=== PATIENT | female | born 1940 | race Caucasian/White ===

== ENCOUNTER 2017-09-07 20:58 | Emergency (ER) | payer MEDICARE, SELFPAY ==
[2017-09-07 20:59] VITALS: BP 146/64; PULSE 60; RESP 19; TEMP 36.7; O2SAT 99; BMI 26.4
[2017-09-07 21:06] LABS: Bedside Glucose 122 mg/dL (70-110)
--- NOTE | 2017-09-07 21:26 | RAD_ITS ---
STUDY: X-RAY - LUMBAR SPINE REASON FOR EXAM: Female, 77 years old. Pain, injury TECHNIQUE: 3 view(s) of the lumbar spine were obtained. COMPARISON: None FINDINGS: There is osteopenia. There is levoscoliosis. There is mild degenerative spondylolisthesis at L4-L5. There is multilevel degenerative spurring with degenerative disc disease pronounced at L2-L3 and T12-L1. There is no acute fracture. No osseous destruction. Arterial calcification. RAD/Lumbar Spine 2 or 3 Views IMPRESSION: Mild degenerative spondylolisthesis, L4-L5 Levoscoliosis with multilevel degenerative disease pronounced at L1-L2 and T11-T12 Osteopenia Electronically Signed: Bear Robertson MD at 22:08 EDT Tel , Service support ,
--- NOTE | 2017-09-07 21:26 | EKG12_ITS ---
Test Reason : WEAKNESS Blood Pressure : / mmHG Vent. Rate : 054 BPM Atrial Rate : 054 BPM P-R Int : 166 ms QRS Dur : 092 ms QT Int : 424 ms P-R-T Axes : 053 -19 020 degrees QTc Int : 402 ms Sinus bradycardia Otherwise normal ECG Confirmed by LAVELL LING, OLIVIA ([id number]), fan mail editor LENORE WATTS ([id number]) on 09/11/2017 1:11:43 PM Referred By: RADHA Confirmed By:OLIVIA MONTE MD
--- NOTE | 2017-09-07 21:48 | RAD_ITS ---
STUDY: X-RAY - PELVIS AND LEFT HIP REASON FOR EXAM: Female, 77 years old. Injury, pain TECHNIQUE: Radiological exam, hip, unilateral, with pelvis when performed; 2 or 3 views. COMPARISON: None. FINDINGS: There is moderate osteoarthritis bilaterally. There is chondrocalcinosis. There is amorphous calcification at the gluteal insertion on the right. There is osteopenia. There is no acute fracture. No osseous destruction. There is no osteonecrosis. The SI joints are intact. Arterial calcification. RAD/Hip 2-3 Views with Pelvis IMPRESSION: No acute fracture Moderate osteoarthritis of the hips CPPD deposition Electronically Signed: Bear Robertson MD at 22:05 EDT Tel , Service support ,
[2017-09-07 21:51] LABS: Absolute Lymphocyte Count 1.59 X10^3/ul (0.83-4.51); Absolute Neutrophil Count 6.1 X10^3/uL (2.0-7.7); Basophil# 0.01 X10^3/uL; Basophil% 0.1 % (0-1); Eosinophil# 0.06 X10^3/uL; Eosinophils% 0.7 % (0-5); Hematocrit 39.1 % (37-47); Lymphocyte # 1.59 X10^3/ul (4.0); Lymphocyte % 18.3 % (19-41); Mean Corp Hgb Conc 33.2 g/gl (32-36); Mean Corpuscular Volume 93.3 fL (81-99); Mean Platelet Vol. 9.8 fl (6.2-12.0); Monocyte# 0.96 X10^3/uL; Neutrophil # 6.08 X10^3/uL (2.7-7.7); Neutrophil % 69.8 % (47-70); Platelet Count 258 K/mm3 (150-450); RBC Distribution Width SD 44.2 fl (35.1-43.9); Red Blood Count 4.19 M/mm3 (4.2-5.4); White Blood Count 8.7 K/mm3 (4.4-11.0)
[2017-09-07 21:52] LABS: Anion Gap 5 (5-15); BUN 31 mg/dL (7-18); BUN/Creat Ratio 33.5 RATIO (10-20); Chloride 105 mmol/L (98-107); Creatinine, Serum 0.92 mg/dL (0.55-1.02); EST Glomerular Filtration Rate 63 mL/min (>60); Est Glom Filt Rate - Afr Amer 76 mL/min (>60); Estimated Creatinine Clearance 36.78 ml/min; Glucose 106 mg/dL (74-106); POSITIVE COUNT NO; POSITIVE DIFFERENTIAL NO; POSITIVE MORPHOLOGY NO; Potassium 3.7 mmol/L (3.5-5.1); Sodium Level 140 mmol/L (136-145)
[2017-09-07] MEDS: 0.9% Normal Saline 1,000 ML 150 ML IV (22:32)
[2017-09-07 22:55] LABS: Bacteria 0 SEEN /hpf (None Seen); Mucous, Urine 0 SEEN /hpf (<or=2+); Squamous Epithelial Cells - UA 0 SEEN /hpf (5-10)
[2017-09-07 22:58] LABS: Color, Urine Yellow (Yellow); Glucose, Dipstick Normal (Normal); Ketone-Dipstick Negative (Negative); Leukocyte Esterase-Dipstick 100 /ul (Negative); Nitrite-Dipstick Negative (Negative); Occult Blood-Urine 25 /ul (Negative); Protein-Dipstick 15 mg/dl (Negative); Specific Gravity, Urine 1.025 (1.002-1.030); Urine Bilirubin Dipstick Negative (Negative); Urine Clarity Clear (Clear); Urine Urobilinogen Normal (Normal)
[2017-09-07 23:04] LABS: Red Blood Cells-Urine 0-5 SEEN /hpf (0-5); White Blood Cells 0-5 SEEN /hpf (0-5)
--- NOTE | 2017-09-07 23:09 | ED.VISSUMM ---
- ER Visit Summary Date of Service: 09/07/17 Chief Complaint: [Fall] History of Present Illness: The patient is a 77 F [presents the emergency department with complaint of a fall that occurred this evening. Patient states it really was not even much of a fall she just got stuck and wedged between a chest and her bed. Patient used her medic alert button to alert EMS. Patient was noted to be somewhat confused and had some difficult speech so they convinced her to come to the emergency department to be evaluated. On arrival to the emergency department patient is without any injury or complaint and she does have a family member here with her as well as a friend who has power of commercial real estate attorney over patient. Patient is to go to assisted living facility next week. Patient apparently had a fall 3 days ago and had been complaining of some left hip pain. Patient also complains of some discomfort into her low back.] Physical Examination: [HEENT-PERRLA, EOMI. Cranial nerves II through XII grossly intact. TMs clear. Mucous membranes moist. No adenopathy. Cardiovascular-regular rate and rhythm without murmur or ectopy Lungs-clear to auscultation, chest wall stable without crepitus or subcu emphysema Abdomen-normoactive bowel sounds, soft, nontender, no rebound or rigidity, no peritoneal signs. Back exam-patient has some mild diffuse tenderness over the lumbar spine. Extremities-intact ?4, normal range of motion, normal pulses, atraumatic]. Patient has some mild tenderness over the right and left hips on palpation however there is no leg shortening or rotational deformity noted. She is neurovascularly intact. Test Results: [EKG obtained on arrival shows sinus rhythm with a ventricular rate of 54 bpm. CBC with differential was normal. Chemistries unremarkable. Urinalysis was normal. Troponin was less than 0.015. X-rays of the pelvis and left hip obtained showed no fractures. X-rays of the lumbar spine show degenerative changes and levoscoliosis but no fractures.] Emergency Department Course and Treatment: [I had a discussion with patient and her family and friend at this time patient still makes all her medical decisions. She does not want to be admitted to the hospital but would prefer to go home she feels safe going home. Patient understands that I have some concern about her ability to care for herself. Patient does normally walk with a walker. Patient understands she is at risk for further fall and injury. Patient understands she may return to the emergency department at any time.] Treatment Plan: [Patient to follow-up with her primary care physician within next 5-7 days.] Disposition: [Discharged home in stable condition] Impression: [Generalized weakness Back pain status post fall Bilateral hip pain] This note was generated with [employer] dictation software. It may contain incorrect words, spelling, and punctuation that were not noted in review of the chart prior to signing ED Disposition - Plan for ED Patient: Chief Complaint: Fall Referrals: Kevin Francis MD [Primary Care Provider] -
--- NOTE | 2017-09-07 23:13 | ED.DEP ---
ED Disposition - Plan for ED Patient: Chief Complaint: Fall Instructions: ED Mechanical Fall, ED Weakness [facility] Referrals: Kevin Francis MD [Primary Care Provider] - 5-7 Days
[2017-09-07 23:32] VITALS: BP 136/90; PULSE 89; RESP 16; O2SAT 98
== END 2017-09-07 23:41 | disposition home or self-care (01) ==
PROVIDERS: Emergency Provider Emergency Medicine; Family Provider Family Medicine; PCP Family Medicine
DX: R53.1 Weakness (principal); M54.9 Dorsalgia, unspecified; M25.552 Pain in left hip; M25.551 Pain in right hip; F03.90 Unspecified dementia, unspecified severity, without behavioral disturbance, psychotic disturbance, mood disturbance, and anxiety; Z79.899 Other long term (current) drug therapy; Z91.81 History of falling
CPT/HCPCS: 72100; 73502; 80048; 81001; 82962; 84484; 85025; 93005; 96360; 99285; J7030; A4216

== ENCOUNTER 2018-04-22 11:11 | Emergency (ER) | payer MEDICARE, MEDICAID, SELFPAY ==
[2018-04-22 11:13] VITALS: BP 188/50; PULSE 52; RESP 17; TEMP 36.5; O2SAT 98; BMI 28.3
--- NOTE | 2018-04-22 11:30 | RAD_ITS ---
STUDY: X-RAY - LEFT HIP REASON FOR EXAM: Female, 78 years old. Left hip pain following a fall. TECHNIQUE: 2 views of the hip. COMPARISON: Comparison is made with prior study dated September 07, 2017. FINDINGS: Normal femoral head, neck, intertrochanteric region and visualized proximal femur. Normal acetabulum. There is severe articular joint space narrowing. Normal visualized superior and inferior pubic rami and ischial tuberosities. RAD/HIP, UNI W/ Pelvis 2-3 Views IMPRESSION: Marked degree of degenerative changes of the left hip joint. No fracture or dislocation is seen. Electronically Signed: Karl Ferrell, at 12:32 EST , Service support ,
--- NOTE | 2018-04-22 11:31 | RAD_ITS ---
STUDY: X-RAY - LEFT KNEE REASON FOR EXAM: Fall last night, left hip pain. TECHNIQUE: 4 view(s) of the knee. COMPARISON: None. FINDINGS: There is a total knee arthroplasty without evidence of complication. There is mild vascular calcification. RAD/Knee 4 or More Views IMPRESSION: Uncomplicated left total knee arthroplasty. Electronically Signed: Barber Parrish MD at 12:35 EST Tel , Service support ,
--- NOTE | 2018-04-22 13:30 | ED.VISSUMM ---
- ER Visit Summary Date of Service: 04/22/18 Chief Complaint: Left hip pain History of Present Illness: The patient is a 78 F who sustained a fall yesterday. She states that she landed on her left hip and has been painful. She states it is hard for her to ambulate today but is doing better after taking some Tylenol. She denies any other injuries. Physical Examination: Afebrile vital signs are stable Gen: Well-nourished well-developed Head: Normocephalic atraumatic Eyes: Perrl EOMI ENT: TMs clear no rhinorrhea moist mucous membranes Neck: Supple no lymphadenopathy no JVD nontender CVS: Regular rate rhythm no murmurs normal S1-S2 Respiratory: No distress clear to auscultation bilaterally chest nontender Abdomen: Soft nontender nondistended normal bowel sounds no masses Back: Nontender Extremity: Negative logroll. Patient can flex and extend at the hip joint. She has pain on the medial aspect of the left knee with flexion. Skin: Normal color no rash Neuro: alert orientated ?3 CN II-XII intact normal strength sensation reflexes gait cerebellar Psych: Normal affect normal mood Test Results: X-rays of the hip pelvis and ankle were negative for fracture Emergency Department Course and Treatment: Patient is able to ambulate here in the department. She will be discharged back to assisted living center. Impression: 1. Left hip contusion This note was generated with [employer] dictation software. It may contain incorrect words, spelling, and punctuation that were not noted in review of the chart prior to signing ED Disposition - Plan for ED Patient: Disposition: Home or Assisted Living Instructions: ED Contusion Hip Referrals: Kevin Francis MD [Primary Care Provider] - 1 Week if not improving
--- NOTE | 2018-04-22 13:37 | ED.RN ---
REPORT CALLED BACK TO RONALD AT [facility], WAITING FOR TRAN[facility].
== END 2018-04-22 14:10 | disposition home or self-care (01) ==
PROVIDERS: Emergency Provider Emergency Medicine; Family Provider Family Medicine; PCP Family Medicine
DX: S70.02XA Contusion of left hip, initial encounter (principal); W19.XXXA Unspecified fall, initial encounter; Y93.9 Activity, unspecified; Y92.9 Unspecified place or not applicable; Y99.9 Unspecified external cause status; I10 Essential (primary) hypertension; Z79.899 Other long term (current) drug therapy; Z85.3 Personal history of malignant neoplasm of breast
CPT/HCPCS: 73502; 73564; 99284

== ENCOUNTER → 2018-05-25 10:42 | Outpatient (CLI) | payer MEDICARE, MEDICAID, SELFPAY ==
--- NOTE | 2018-05-25 11:05 | RAD_ITS ---
STUDY: X-RAY - LEFT KNEE REASON FOR EXAM: Female, 78 years old. Pain following a recent fall. TECHNIQUE: 4 view(s) of the knee. COMPARISON: Comparison is made with prior study dated April 22, 2018. FINDINGS: Normal visualized distal femur. Normal visualized proximal tibia and fibula. Normal proximal tibiofibular articulation. The patient is status post total knee replacement. There is good alignment. Small joint effusion and soft tissue swelling. RAD/Knee 4 or More Views IMPRESSION: Status post total knee replacement. Small joint effusion and soft tissue swelling. Electronically Signed: Karl Ferrell, at 11:13 EDT , Service support ,
== END ==
PROVIDERS: Family Provider Family Medicine; PCP Family Medicine; Referring Provider Anesthesiology Pain Medicine; Visit Provider Anesthesiology Pain Medicine
DX: M25.562 Pain in left knee (principal)
CPT/HCPCS: 73564

== ENCOUNTER → 2019-06-27 | Outpatient (CLI) | payer MEDICARE, MEDICAID, SELFPAY | END | disposition home or self-care (01) | LOC: LABSPEC 06-28 12:30 | PROVIDERS: PCP Family Medicine; Referring Provider Family Medicine; Visit Provider Family Medicine | DX: J98.8 Other specified respiratory disorders (principal) | CPT/HCPCS: 87635; U0004 ==

== ENCOUNTER → 2020-08-22 05:00 | Outpatient (REF) | payer MEDICARE, MEDICAID, SELFPAY ==
[2020-08-22 08:41] LABS: Absolute Neutrophil Count 5.9 X10^3/uL (2.0-7.7); Basophil# 0.02 X10^3/uL; Basophil% 0.2 % (0-1); Eosinophil# 0.09 X10^3/uL; Hematocrit 27.8 % (37-47); Hemoglobin 9.3 g/dL (12.0-15.0); Lymphocyte % 19.5 % (19-41); Mean Corp Hgb Conc 33.5 g/dL (32-36); Mean Corpuscular Hgb 31.4 pg (27.0-32.0); Mean Corpuscular Volume 93.9 fL (81-99); Mean Platelet Vol. 10.4 fl (6.2-12.0); Monocyte# 0.93 X10^3/uL; Monocyte% 10.7 % (0-10); NRBC Flagged by Analyzer 0 % (0-5); Neutrophil # 5.94 X10^3/uL (2.7-7.7); Neutrophil % 68.1 % (47-70); Platelet Count 397 K/mm3 (150-450); RBC Distribution Width CV 11.9 % (11.6-14.6); RBC Distribution Width SD 41.1 fl (35.1-43.9); Red Blood Count 2.96 M/mm3 (4.2-5.4); White Blood Count 8.7 K/mm3 (4.4-11.0)
[2020-08-22 09:12] LABS: ALB/GLOB Ratio 0.5 RATIO (0.9-2.4); AST(SGOT) 20 U/L (15-37); Alanine Aminotransfer ALT/SGPT 20 U/L (13-56); Albumin, Serum 2.5 g/dL (3.2-5.0); Alkaline Phosphatase 54 U/L (45-117); Anion Gap 6 (5-15); BUN 52 mg/dL (7-18); BUN/Creat Ratio 15.8 RATIO (10-20); Calcium,Total 9.1 mg/dL (8.5-10.1); Chloride 101 mmol/L (98-107); EST Glomerular Filtration Rate 14 mL/min (>60); Est Glom Filt Rate - Afr Amer 17 mL/min (>60); Globulin 4.8 g/dL (2.2-4.2); Glucose 83 mg/dL (74-106); Potassium 3.5 mmol/L (3.5-5.1); Protein, Total 7.3 g/dL (6.4-8.2); Sodium Level 135 mmol/L (136-145); Thyroid Stim Hormone (TSH) 1.96 uIU/mL (0.358-3.74)
== END ==
LOC: OLS.SW400 05:00
PROVIDERS: PCP Family Medicine; Visit Provider Family Medicine
DX: E03.9 Hypothyroidism, unspecified (principal)
CPT/HCPCS: 36415; 80053; 84443; 85025

== ENCOUNTER → 2020-09-24 04:00 | Outpatient (REF) | payer MEDICARE, MEDICAID, SELFPAY ==
[2020-09-24 08:11] LABS: Anion Gap 8 (5-15); BUN 40 mg/dL (7-18); BUN/Creat Ratio 17.1 RATIO (10-20); Calcium,Total 9.1 mg/dL (8.5-10.1); Chloride 104 mmol/L (98-107); Creatinine, Serum 2.34 mg/dL (0.55-1.02); EST Glomerular Filtration Rate 21 mL/min (>60); Est Glom Filt Rate - Afr Amer 26 mL/min (>60); Glucose 89 mg/dL (74-106); Potassium 3.6 mmol/L (3.5-5.1); Sodium Level 138 mmol/L (136-145)
== END ==
LOC: OLS.SW400 04:00
PROVIDERS: PCP Family Medicine; Visit Provider Family Medicine
DX: R79.9 Abnormal finding of blood chemistry, unspecified (principal)
CPT/HCPCS: 36415; 80048

== ENCOUNTER → 2020-11-21 05:00 | Outpatient (REF) | payer MEDICARE, MEDICAID, SELFPAY ==
[2020-11-21 07:53] LABS: Absolute Lymphocyte Count 1.65 X10^3/uL (0.83-4.51); Absolute Neutrophil Count 4.2 X10^3/uL (2.0-7.7); Basophil# 0.03 X10^3/uL; Basophil% 0.4 % (0-1); Eosinophil# 0.18 X10^3/uL; Eosinophils% 2.7 % (0-5); Hematocrit 28.3 % (37-47); Hemoglobin 9.4 g/dL (12.0-15.0); Lymphocyte # 1.65 X10^3/ul (0.83-4.51); Lymphocyte % 24.7 % (19-41); Mean Corp Hgb Conc 33.2 g/dL (32-36); Mean Corpuscular Hgb 31.1 pg (27.0-32.0); Mean Corpuscular Volume 93.7 fL (81-99); Mean Platelet Vol. 10.4 fl (6.2-12.0); NRBC Flagged by Analyzer 0 % (0-5); Neutrophil % 62.9 % (47-70); Platelet Count 329 K/mm3 (150-450); RBC Distribution Width CV 12.7 % (11.6-14.6); RBC Distribution Width SD 43.3 fl (35.1-43.9); Red Blood Count 3.02 M/mm3 (4.2-5.4); White Blood Count 6.7 K/mm3 (4.4-11.0)
[2020-11-21 08:29] LABS: ALB/GLOB Ratio 0.6 RATIO (0.9-2.4); AST(SGOT) 16 U/L (15-37); Alanine Aminotransfer ALT/SGPT 18 U/L (13-56); Albumin, Serum 2.6 g/dL (3.2-5.0); Alkaline Phosphatase 47 U/L (45-117); Anion Gap 7 (5-15); BUN 45 mg/dL (7-18); BUN/Creat Ratio 16.4 RATIO (10-20); Calcium,Total 9.1 mg/dL (8.5-10.1); Chloride 104 mmol/L (98-107); Creatinine, Serum 2.74 mg/dL (0.55-1.02); EST Glomerular Filtration Rate 18 mL/min (>60); Est Glom Filt Rate - Afr Amer 21 mL/min (>60); Globulin 4.2 g/dL (2.2-4.2); Glucose 91 mg/dL (74-106); Potassium 3.8 mmol/L (3.5-5.1); Protein, Total 6.8 g/dL (6.4-8.2); Sodium Level 139 mmol/L (136-145); Thyroid Stim Hormone (TSH) 2.76 uIU/mL (0.358-3.74)
== END ==
LOC: OLS.SW400 05:00
PROVIDERS: PCP Family Medicine; Visit Provider Family Medicine
DX: E03.9 Hypothyroidism, unspecified (principal)
CPT/HCPCS: 36415; 80053; 84443; 85025

== ENCOUNTER → 2021-02-20 05:00 | Outpatient (REF) | payer MEDICARE, MEDICAID, SELFPAY ==
[2021-02-20 09:39] LABS: Absolute Lymphocyte Count 2.12 X10^3/uL (0.83-4.51); Basophil# 0.05 X10^3/uL; Basophil% 0.6 % (0-1); Eosinophil# 0.17 X10^3/uL; Eosinophils% 2.1 % (0-5); Hematocrit 32.3 % (37-47); Hemoglobin 10.6 g/dL (12.0-15.0); Lymphocyte # 2.12 X10^3/ul (0.83-4.51); Lymphocyte % 26.4 % (19-41); Mean Corp Hgb Conc 32.8 g/dL (32-36); Mean Corpuscular Hgb 31.4 pg (27.0-32.0); Mean Corpuscular Volume 95.6 fL (81-99); Mean Platelet Vol. 10.3 fl (6.2-12.0); Monocyte# 0.64 X10^3/uL; NRBC Flagged by Analyzer 0 % (0-5); Neutrophil % 62.4 % (47-70); Platelet Count 412 K/mm3 (150-450); RBC Distribution Width CV 13.1 % (11.6-14.6); RBC Distribution Width SD 45.6 fl (35.1-43.9); Red Blood Count 3.38 M/mm3 (4.2-5.4)
[2021-02-20 09:58] LABS: ALB/GLOB Ratio 0.6 RATIO (0.9-2.4); AST(SGOT) 15 U/L (15-37); Alanine Aminotransfer ALT/SGPT 15 U/L (13-56); Albumin, Serum 2.8 g/dL (3.2-5.0); Alkaline Phosphatase 51 U/L (45-117); Anion Gap 6 (5-15); BUN 35 mg/dL (7-18); BUN/Creat Ratio 12.5 RATIO (10-20); Calcium,Total 9.7 mg/dL (8.5-10.1); Chloride 103 mmol/L (98-107); Creatinine, Serum 2.81 mg/dL (0.55-1.02); EST Glomerular Filtration Rate 17 mL/min (>60); Est Glom Filt Rate - Afr Amer 21 mL/min (>60); Globulin 4.6 g/dL (2.2-4.2); Glucose 89 mg/dL (74-106); Potassium 3.4 mmol/L (3.5-5.1); Protein, Total 7.4 g/dL (6.4-8.2); Sodium Level 139 mmol/L (136-145); Thyroid Stim Hormone (TSH) 2.57 uIU/mL (0.358-3.74)
== END ==
LOC: OLS.SW400 05:00
PROVIDERS: PCP Family Medicine; Visit Provider Family Medicine
DX: E03.9 Hypothyroidism, unspecified (principal)
CPT/HCPCS: 36415; 80053; 84443; 85025

== ENCOUNTER → 2021-05-22 | Outpatient (REF) | payer MEDICARE, MEDICAID, SELFPAY ==
[2021-05-22 08:30] LABS: Absolute Lymphocyte Count 2.12 X10^3/uL (0.83-4.51); Absolute Neutrophil Count 4.6 X10^3/uL (2.0-7.7); Basophil# 0.04 X10^3/uL; Basophil% 0.5 % (0-1); Eosinophil# 0.16 X10^3/uL; Eosinophils% 2.1 % (0-5); Hematocrit 31.1 % (37-47); Hemoglobin 10.3 g/dL (12.0-15.0); Lymphocyte # 2.12 X10^3/ul (0.83-4.51); Lymphocyte % 27.9 % (19-41); Mean Corp Hgb Conc 33.1 g/dL (32-36); Mean Corpuscular Volume 93.7 fL (81-99); Mean Platelet Vol. 10.5 fl (6.2-12.0); Monocyte# 0.64 X10^3/uL; Monocyte% 8.4 % (0-10); NRBC Flagged by Analyzer 0 % (0-5); Neutrophil % 60.6 % (47-70); Platelet Count 433 K/mm3 (150-450); RBC Distribution Width CV 12.2 % (11.6-14.6); RBC Distribution Width SD 41.7 fl (35.1-43.9); Red Blood Count 3.32 M/mm3 (4.2-5.4); White Blood Count 7.6 K/mm3 (4.4-11.0)
[2021-05-22 08:56] LABS: ALB/GLOB Ratio 0.6 RATIO (0.9-2.4); AST(SGOT) 16 U/L (15-37); Alanine Aminotransfer ALT/SGPT 20 U/L (13-56); Albumin, Serum 2.9 g/dL (3.2-5.0); Alkaline Phosphatase 56 U/L (45-117); Anion Gap 5 (5-15); BUN 39 mg/dL (7-18); BUN/Creat Ratio 13.7 RATIO (10-20); Calcium,Total 9.2 mg/dL (8.5-10.1); Chloride 102 mmol/L (98-107); Creatinine, Serum 2.85 mg/dL (0.55-1.02); EST Glomerular Filtration Rate 17 mL/min (>60); Est Glom Filt Rate - Afr Amer 20 mL/min (>60); Globulin 4.6 g/dL (2.2-4.2); Glucose 95 mg/dL (74-106); Potassium 3.6 mmol/L (3.5-5.1); Protein, Total 7.5 g/dL (6.4-8.2); Sodium Level 138 mmol/L (136-145)
== END | disposition home or self-care (01) ==
LOC: OLS.SW400 04:00
PROVIDERS: PCP Family Medicine; Referring Provider Family Medicine; Visit Provider Family Medicine
DX: E03.9 Hypothyroidism, unspecified (principal)
CPT/HCPCS: 36415; 80053; 84443; 85025

== ENCOUNTER → 2021-05-27 | Outpatient (REF) | payer MEDICARE, SELFPAY ==
[2021-05-27 09:11] LABS: Absolute Lymphocyte Count 2.08 X10^3/uL (0.83-4.51); Absolute Neutrophil Count 8.4 X10^3/uL (2.0-7.7); Basophil# 0.04 X10^3/uL; Basophil% 0.3 % (0-1); Eosinophil# 0.17 X10^3/uL; Eosinophils% 1.5 % (0-5); Hematocrit 29.9 % (37-47); Hemoglobin 9.9 g/dL (12.0-15.0); Lymphocyte # 2.08 X10^3/ul (0.83-4.51); Lymphocyte % 18.2 % (19-41); Mean Corp Hgb Conc 33.1 g/dL (32-36); Mean Corpuscular Volume 93.7 fL (81-99); Monocyte# 0.73 X10^3/uL; Monocyte% 6.4 % (0-10); NRBC Flagged by Analyzer 0 % (0-5); Neutrophil # 8.39 X10^3/uL (2.7-7.7); Neutrophil % 73.3 % (47-70); Platelet Count 396 K/mm3 (150-450); RBC Distribution Width CV 12.4 % (11.6-14.6); RBC Distribution Width SD 42.6 fl (35.1-43.9); Red Blood Count 3.19 M/mm3 (4.2-5.4); White Blood Count 11.4 K/mm3 (4.4-11.0)
[2021-05-27 09:12] LABS: Mucous, Urine 0 SEEN /hpf (<or=2+); Squamous Epithelial Cells - UA 0 SEEN /hpf (5-10)
[2021-05-27 09:26] LABS: Color, Urine Yellow (Yellow); Glucose, Dipstick Normal (Normal); Ketone-Dipstick Negative (Negative); Leukocyte Esterase-Dipstick 500 /ul (Negative); Nitrite-Dipstick Negative (Negative); Occult Blood-Urine 50 /ul (Negative); Protein-Dipstick 30 mg/dl (Negative); Urine Bilirubin Dipstick Negative (Negative); Urine Clarity Sl. Cloudy (Clear); Urine Urobilinogen Normal (Normal)
[2021-05-27 09:32] LABS: Bacteria 3+ /hpf (None Seen); Red Blood Cells-Urine 0-5 SEEN /hpf (0-5); Triple Phosphate Crystals Ur 1+ /hpf (<or=1+); White Blood Cells 25-50 SEEN /hpf (0-5)
== END | disposition home or self-care (01) ==
LOC: OLS.SW400 04:00
PROVIDERS: PCP Family Medicine; Referring Provider Family Medicine; Visit Provider Family Medicine
DX: N39.0 Urinary tract infection, site not specified (principal)
CPT/HCPCS: 36415; 81001; 85025; 87077; 87086; 87088; 87186

== ENCOUNTER → 2021-08-21 06:40 | Outpatient (REF) | payer MEDICARE, MEDICAID, SELFPAY ==
[2021-08-21 08:30] LABS: Absolute Lymphocyte Count 1.66 X10^3/uL (0.83-4.51); Absolute Neutrophil Count 5.2 X10^3/uL (2.0-7.7); Basophil# 0.05 X10^3/uL; Basophil% 0.7 % (0-1); Eosinophil# 0.11 X10^3/uL; Eosinophils% 1.5 % (0-5); Hematocrit 29.6 % (37-47); Hemoglobin 9.9 g/dL (12.0-15.0); Lymphocyte # 1.66 X10^3/ul (0.83-4.51); Lymphocyte % 21.9 % (19-41); Mean Corp Hgb Conc 33.4 g/dL (32-36); Mean Corpuscular Hgb 31.6 pg (27.0-32.0); Mean Corpuscular Volume 94.6 fL (81-99); Mean Platelet Vol. 11.3 fl (6.2-12.0); Monocyte# 0.47 X10^3/uL; Monocyte% 6.2 % (0-10); NRBC Flagged by Analyzer 0 % (0-5); Neutrophil # 5.24 X10^3/uL (2.7-7.7); Neutrophil % 69.2 % (47-70); Platelet Count 326 K/mm3 (150-450); RBC Distribution Width SD 44.7 fl (35.1-43.9); Red Blood Count 3.13 M/mm3 (4.2-5.4); White Blood Count 7.6 K/mm3 (4.4-11.0)
[2021-08-21 08:55] LABS: ALB/GLOB Ratio 0.7 RATIO (0.9-2.4); AST(SGOT) 21 U/L (15-37); Alanine Aminotransfer ALT/SGPT 26 U/L (13-56); Albumin, Serum 2.9 g/dL (3.2-5.0); Alkaline Phosphatase 44 U/L (45-117); Anion Gap 6 (5-15); BUN 44 mg/dL (7-18); Calcium,Total 9.4 mg/dL (8.5-10.1); Chloride 106 mmol/L (98-107); Creatinine, Serum 2.93 mg/dL (0.55-1.02); EST Glomerular Filtration Rate 16 mL/min (>60); Est Glom Filt Rate - Afr Amer 20 mL/min (>60); Globulin 4.2 g/dL (2.2-4.2); Glucose 91 mg/dL (74-106); Potassium 3.8 mmol/L (3.5-5.1); Protein, Total 7.1 g/dL (6.4-8.2); Sodium Level 140 mmol/L (136-145); Thyroid Stim Hormone (TSH) 3.95 uIU/mL (0.358-3.74)
== END ==
LOC: OLS.SW400 06:40
PROVIDERS: PCP Family Medicine; Visit Provider Family Medicine
DX: E03.9 Hypothyroidism, unspecified (principal)
CPT/HCPCS: 36415; 80053; 84443; 85025

== ENCOUNTER → 2021-11-20 | Outpatient (REF) | payer MEDICARE, MEDICAID, SELFPAY ==
[2021-11-20 08:46] LABS: Basophil# 0.04 X10^3/uL; Basophil% 0.3 % (0-1); Eosinophil# 0.11 X10^3/uL; Eosinophils% 0.8 % (0-5); Hematocrit 30.1 % (37-47); Hemoglobin 9.5 g/dL (12.0-15.0); Lymphocyte % 16.7 % (19-41); Mean Corp Hgb Conc 31.6 g/dL (32-36); Mean Corpuscular Hgb 32.2 pg (27.0-32.0); Mean Platelet Vol. 11.1 fl (6.2-12.0); Monocyte# 0.74 X10^3/uL; Monocyte% 5.6 % (0-10); NRBC Flagged by Analyzer 0 % (0-5); Neutrophil # 9.99 X10^3/uL (2.7-7.7); Neutrophil % 76.1 % (47-70); Platelet Count 337 K/mm3 (150-450); RBC Distribution Width CV 12.8 % (11.6-14.6); RBC Distribution Width SD 47.7 fl (35.1-43.9); Red Blood Count 2.95 M/mm3 (4.2-5.4); White Blood Count 13.2 K/mm3 (4.4-11.0)
[2021-11-20 09:29] LABS: ALB/GLOB Ratio 0.6 RATIO (0.9-2.4); AST(SGOT) 22 U/L (15-37); Alanine Aminotransfer ALT/SGPT 21 U/L (13-56); Albumin, Serum 2.6 g/dL (3.2-5.0); Alkaline Phosphatase 52 U/L (45-117); Anion Gap 8 (5-15); BUN 70 mg/dL (7-18); BUN/Creat Ratio 18.1 RATIO (10-20); Calcium,Total 9.5 mg/dL (8.5-10.1); Chloride 107 mmol/L (98-107); Creatinine, Serum 3.86 mg/dL (0.55-1.02); EST Glomerular Filtration Rate 12 mL/min (>60); Est Glom Filt Rate - Afr Amer 14 mL/min (>60); Globulin 4.6 g/dL (2.2-4.2); Glucose 84 mg/dL (74-106); Potassium 4.6 mmol/L (3.5-5.1); Protein, Total 7.2 g/dL (6.4-8.2); Sodium Level 141 mmol/L (136-145); Thyroid Stim Hormone (TSH) 1.38 uIU/mL (0.358-3.74)
== END ==
LOC: OLS.SW400 04:00
PROVIDERS: PCP Family Medicine; Visit Provider Family Medicine
DX: R53.83 Other fatigue (principal); E46 Unspecified protein-calorie malnutrition; G30.1 Alzheimer's disease with late onset; E03.9 Hypothyroidism, unspecified
CPT/HCPCS: 36415; 80053; 84443; 85025